=== PATIENT | female | born 1970 | race Two or more races ===

== ENCOUNTER 2018-12-28 18:48 | Emergency (ER) | payer OTHER ==
[~2018-12-28] VITALS: Ht 160 cm; Wt 63.5 kg
== END 2018-12-28 19:38 | disposition home or self-care (01) ==
LOC: ER 18:48
DX: S61.226A Laceration with foreign body of right little finger without damage to nail, initial encounter (principal); W25.XXXA Contact with sharp glass, initial encounter; Y93.89 Activity, other specified; Y92.59 Other trade areas as the place of occurrence of the external cause; Y99.8 Other external cause status